=== PATIENT | female | born 1965 | race Caucasian/White ===

== ENCOUNTER 2020-04-14 10:28 | Day surgery (SDC) | payer BC, SELFPAY ==
[~2020-04-14] VITALS: Ht 160 cm; Wt 51.3 kg
[2020-04-14] MEDS ORDERED: NS IRRIG SOLN 1000 ML IR ONE (11:45)
[2020-04-14] MEDS ORDERED: ONDANSETRON HCL 4 MG/2 ML VIAL IVP ONE (11:45)
[2020-04-14] MEDS ORDERED: METOCLOPRAMIDE HCL 10 MG/2 ML VIAL IVP ONE (11:45)
[2020-04-14] MEDS ORDERED: KETOROLAC TROMETHAMINE 30 MG VIAL IVP ONE (11:45)
[2020-04-14] MEDS ORDERED: PROPOFOL 200MG/ 20ML VIAL (DIPRIVAN) IV ONE (11:45)
[2020-04-14] MEDS ORDERED: SEVOFLURANE 15 MIN GAS INH ONE (11:45)
[2020-04-14] MEDS ORDERED: NS 1000 ML IV.SOLN IV ONE (11:45)
[2020-04-14] MEDS ORDERED: MIDAZOLAM HCL 5 MG/5 ML VIAL IVP ONE (11:45)
[2020-04-14] MEDS ORDERED: LR 1,000 ML IV.SOLN IV ONE (11:45)
[2020-04-14] MEDS ORDERED: GLYCOPYRROLATE 0.2 MG/ML VIAL IJ ONE (11:45)
[2020-04-14] MEDS ORDERED: CEFAZOLIN 1 GM IVPB PREMIX 50 ML IV ONE (11:45)
[2020-04-14] MEDS ORDERED: fentaNYL CITRATE/PF 100 MCG/2 ML AMP IVP ONE (11:45)
[2020-04-14] MEDS ORDERED: BUPIVACAINE /EPINEPHRINE/PF 0.25% 30 ML VIAL INJ ONE (11:45)
[2020-04-14] MEDS ORDERED: LR 1,000 ML IV SCH (12:22)
[2020-04-14] MEDS ORDERED: HYDROmorphone 1 MG INJ. 1 MG/ML AMPUL IVP PRN ×2 (12:30)
[2020-04-14] MEDS ORDERED: KETOROLAC TROMETHAMINE 30 MG VIAL IVP PRN ×3 (12:30)
[2020-04-14] MEDS ORDERED: ONDANSETRON HCL 4 MG/2 ML VIAL IVP PRN (12:30)
[2020-04-14 14:49] VITALS: BP_SYST 134
== END 2020-04-14 14:30 | disposition home or self-care (01) ==
LOC: SDS 10:28 → SMU 10:29 → SDS 14:30
PROVIDERS: ATTEND Orthopaedic Surgery
DX: G56.02 Carpal tunnel syndrome, left upper limb (principal); E23.0 Hypopituitarism; M19.90 Unspecified osteoarthritis, unspecified site; Z79.899 Other long term (current) drug therapy; Z20.828 Contact with and (suspected) exposure to other viral communicable diseases
CPT/HCPCS: 64721; C1713; J7120; U0003; J0690; J1885; J2250; J2405; J2704; J2765; J3010; J3490; J7030